=== PATIENT | female | born 1955 | race Caucasian/White ===

== ENCOUNTER → 2017-11-06 13:18 | Outpatient (POV) | payer BC, SELFPAY | PROVIDERS: PCP Family Medicine; Visit Provider Internal Medicine | DX: Z00.00 Encounter for general adult medical examination without abnormal findings (principal) ==

== ENCOUNTER → 2018-03-14 13:45 | Outpatient (CLI) | payer BC, SELFPAY ==
--- NOTE | 2018-03-14 | NVE_ITS ---
Venous Exam Indications: 782.3 Edema. IMPRESSIONS No evidence of deep or superficial vein thrombosis involving the right lower extremity Right lower extremity venous duplex evaluation. Doppler flow study including spectral analysis, color and mckeon scale imaging. Location: Vascular laboratory. Patient status: Outpatient. Tables: Venous flow and imaging: + +-------+ + Location Overall Flow properties + +-------+ + Right common femoral Patent Normal phasicity; spontaneous; normal augmentation; compressible + +-------+ + Right saphenofemoral junction Patent Compressible + +-------+ + Right profunda femoral Patent Compressible + +-------+ + Right femoral Patent Normal phasicity; spontaneous; normal augmentation; compressible + +-------+ + Right greater saphenous Patent Normal phasicity; spontaneous; normal augmentation; compressible + +-------+ + Right popliteal Patent Normal phasicity; spontaneous; normal augmentation; compressible + +-------+ + Right posterior tibial Patent Compressible + +-------+ + Right peroneal Patent Compressible + +-------+ + Right gastrocnemius Patent Compressible + +-------+ + Right soleal Patent Compressible + +-------+ + (Report amended ) Electronically signed by: Sonny Fuentes [id number]
== END ==
PROVIDERS: PCP Family Medicine; Visit Provider Family Medicine
DX: R60.0 Localized edema (principal)
CPT/HCPCS: 93971

== ENCOUNTER → 2018-04-22 12:37 | Outpatient (CLI) | payer BC, SELFPAY ==
--- NOTE | 2018-04-22 12:40 | CT_ITS ---
CT chest wo con HISTORY: Follow-up multiple pulmonary nodules, tobacco use, smoker ITS.REASON: MULTIPLE NODULES ORDERING PHYSICIAN: Linwood Negron MD PATIENT AGE: 63 years COMPARISON: 07/02/2017 Technique: Axial images obtained with sagittal and coronal reformats. All CT scans at the facility use one or more dose reduction, viz: automated exposure control, ma/kV adjustment per patient size (including targeted exams where dose is matched to indication, i.e. head), or iterative reconstruction technique. FINDINGS: No mediastinal or hilar mass or adenopathy. Coronary artery calcifications and/or stents noted. There is a moderate sized hiatal hernia. Paraseptal and centrilobular emphysematous changes. Mild bronchial thickening. Lobular soft tissue density in the left lung base posteriorly once again noted with some peripheral calcification. This is well-circumscribed and measures 17 x 13 mm not significant changed. No new nodules evident. Subpleural opacity is present in the left lung base posteriorly unchanged. The calcified nodule left lung base posteriorly unchanged. Previously described 5 mm nodule in the right lung base is no longer apparent. There was some patchy infiltrate in this area and this may been due to inflammatory change. Upper abdominal images show that the liver.. No acute bony anomalies. IMPRESSION: 1. Centrilobular and paraseptal emphysematous change with COPD and old granulomatous disease. 2. No change 17 mm left lower lobe partially calcified nodule. 3. Previously noted new nodule in the right lower lobe is no longer apparent. No new nodules evident
== END ==
PROVIDERS: PCP Family Medicine; Visit Provider Internal Medicine
DX: R91.8 Other nonspecific abnormal finding of lung field (principal)
CPT/HCPCS: 71250

== ENCOUNTER → 2018-05-07 13:28 | Outpatient (POV) | payer BC, SELFPAY | PROVIDERS: PCP Family Medicine; Visit Provider Internal Medicine | DX: Z00.00 Encounter for general adult medical examination without abnormal findings (principal) ==

== ENCOUNTER 2018-06-19 15:00 | Outpatient (RCR) | payer BC, SELFPAY ==
--- NOTE | 2018-04-17 14:23 | HMH.PTOPWND ---
Rehab Outpt Wound Evaluation Rehab OP Wound Evaluation Start: 04/17/18 14:11 Freq: Status: Active Protocol: Document 04/17/18 14:14 SIMONE (Rec: 04/17/18 14:23 PHODERICK [id number]) Electronically Signed By Edin Booth, PT 04/17/18 14:14 Subjective/History History History Pt is 63 yowf who presents with right LE increased edema x ~ 6-8 mos with insidious onset of symptoms. She does report that she had right TOM ~ 2 yrs ago with difficulty healing her incision, but has had no problems prior to this point. She reports no c/o pain or discomfort and her edema decreases with elevation. She has PMH of HTN. Lymphedema Eval Classification of Lymphedema Secondary Lymphedema Yes Stemmer's sign Stemmer's Sign no Stage of Lymphedema Lymphedema stages Stage I (Pitting edema, reduces w/ elevation, no fibrosis) Skin Changes Dry Skin Yes Redness Yes Pain Scale Pain Scale (0-10) 0 Affected Extremities Areas Affected by Lymphedema/Edema Right Lower Extremity Manual Lymphatic Drainage Treatment Area MLD Treatment Area Right Lower Extremity Wound Problems/Impairments Impairments Problems/Impairmments Increased Edema Lymphedema Present Impaired Self Care/Self Management Prognosis Rehab Potential Good Clinical Impression Consistent with Diagnosis Yes Short Term Goals Number of Weeks 4 Patient to Understand Lymphedema Yes Treatment and Exercises Decrease Girth Measurments by (cm) Yes: by 10 cm Wood Tile Installation Helper Goals Number of Weeks 8 Patient to be Ind w/ HEP Yes Patient to Adhere Lymphedema Precautions Yes Decrease Girth Measurments by (cm) Yes: by 20 cm Outpatient Therapy Plan of Care Treatment Plan May Include Therapeutic Exercise Including Home Yes Exercise Program Manual Therapy Techniques Yes Neuromuscular Re-education Yes Orthotics/Bracing/Splinting Yes Manual Lymphatic Drainage Yes Eval/Re-Eval Yes Frequency Times per week 2 Duration Number of Weeks 8 Addendums This patient is a candidate for social Yes or vocational rehab? Patient/Guardian verbally acknowledges Yes understanding of treatment program and consent
== END 2018-06-19 15:01 | disposition home or self-care (01) ==
LOC: PT 15:00
PROVIDERS: PCP Family Medicine; Visit Provider Family Medicine
DX: R60.0 Localized edema (principal)
CPT/HCPCS: 97140; 97162; 97760

== ENCOUNTER → 2018-07-01 12:09 | Outpatient (CLI) | payer BC, SELFPAY | PROVIDERS: PCP Family Medicine; Visit Provider Family Medicine | DX: Z01.818 Encounter for other preprocedural examination (principal) | CPT/HCPCS: 93005 ==

== ENCOUNTER → 2018-11-19 09:43 | Outpatient (CLI) | payer BC, SELFPAY | PROVIDERS: PCP Family Medicine; Visit Provider Internal Medicine | DX: J44.9 Chronic obstructive pulmonary disease, unspecified (principal) | CPT/HCPCS: 94060; 94726; 94729 ==

== ENCOUNTER → 2018-11-26 13:23 | Outpatient (POV) | payer BC, SELFPAY | PROVIDERS: Visit Provider Internal Medicine | DX: Z00.00 Encounter for general adult medical examination without abnormal findings (principal) ==

== ENCOUNTER → 2019-04-22 13:25 | Outpatient (CLI) | payer BC, SELFPAY ==
--- NOTE | 2019-04-22 13:28 | CT_ITS ---
PROCEDURE: CT LUNG SCREENING CLINICAL INDICATION: H/O NICOTINE DEPENDENCE COMPARISON: CHESTWO CT chest wo con from 04/22/2018 TECHNIQUE: The exam was performed on a GE Light Speed [address] scanner using 2.90 mGy CTDI. A low dose helical CT CHEST was performed on a multi-detector scanner. All CT scans at the facility use one or more dose reduction, viz: automated exposure control, ma/kV adjustment per patient size (including targeted exams where dose is matched to indication, i.e. head), or iterative reconstruction technique. The LDCT was performed in a facility that meets the criteria for the screening program. Data regarding this exam was submitted to ACR which is an approved registry. The order for this exam indicates that it came as a result of a lung cancer screening counseling shard decision-making visit that included all the elements required of such a visit including smoking cessation. The radiologist interpreting this exam meets the CMS criteria for the LDCT lung cancer screening program. The exam is reported using the Lung-RADS classification scale and reported to the ACR registry. NOTE: This study was performed for the specific purposes of lung cancer screening and is not an alternative to diagnostic chest CT. RADIATION DOSE: CTDI vol(CT dose Index-volume) = 2.90mG DLP (Dose Length Product) = 103.16 mGcm FINDINGS: Centrilobular emphysema. Calcified granuloma left lower lobe. There is a partially calcified 1.8 by 1.5 cm nodule in the left lower lobe posteriorly which is not significantly changed. In addition there is a calcified granuloma in the left lower lobe. A subpleural nodules also present in the left lower lobe posteriorly unchanged at 5 mm. No new nodules are apparent. There is a moderate-sized hiatal hernia OTHER FINDINGS: Coronary artery calcifications IMPRESSION: Lung rads category 2 benign findings Centrilobular emphysema, coronary artery calcifications, a moderate-sized hiatal hernia Recommendations: Follow-up LD CT in 1 year Dictated by: Sonny Fuentes MD 04/28/2019 05:32 Signed by: <Electronically signed by Sonny Fuentes MD in [place]> 04/28/2019 05:32
== END ==
PROVIDERS: PCP Family Medicine; Visit Provider Internal Medicine
DX: Z87.891 Personal history of nicotine dependence (principal); Z12.2 Encounter for screening for malignant neoplasm of respiratory organs

== ENCOUNTER → 2019-05-06 10:46 | Outpatient (POV) | payer BC, SELFPAY | PROVIDERS: Visit Provider Internal Medicine | DX: Z00.00 Encounter for general adult medical examination without abnormal findings (principal) ==

== ENCOUNTER → 2021-02-24 15:19 | Outpatient (CLI) | payer BC, SELFPAY ==
--- NOTE | 2021-02-24 15:20 | CT_ITS ---
PROCEDURE: CT LUNG SCREENING CLINICAL INDICATION: HX OF NICOTINE DEPENDENCE COMPARISON: CT CT LUNG SCREENING from 04/22/2019 TECHNIQUE: The exam was performed on a GE Light Speed [address] scanner using 2.90 mGy CTDI. A low dose helical CT CHEST was performed on a multi-detector scanner. All CT scans at the facility use one or more dose reduction, viz: automated exposure control, ma/kV adjustment per patient size (including targeted exams where dose is matched to indication, i.e. head), or iterative reconstruction technique. The LDCT was performed in a facility that meets the criteria for the screening program. Data regarding this exam was submitted to ACR which is an approved registry. The order for this exam indicates that it came as a result of a lung cancer screening counseling shard decision-making visit that included all the elements required of such a visit including smoking cessation. The radiologist interpreting this exam meets the CMS criteria for the LDCT lung cancer screening program. The exam is reported using the Lung-RADS classification scale and reported to the ACR registry. NOTE: This study was performed for the specific purposes of lung cancer screening and is not an alternative to diagnostic chest CT. RADIATION DOSE: CTDI vol(CT dose Index-volume) = 2.90mG DLP (Dose Length Product) = 98.47 mGcm FINDINGS: COPD with centrilobular emphysema and scattered areas of scarring with evidence of old granulomatous disease. There is a 19 mm nodule within the left lower lobe posteriorly with coarse calcifications and some fat density consistent with a hamartoma not significantly changed. Previously noted 5 mm subpleural opacity left lower lobe posterior medially is unchanged. No new nodules identified. OTHER FINDINGS: Moderate to large-sized hiatal hernia. Coronary artery calcifications. Mildly prominent left adrenal gland maintaining an adrenal form shape not significantly changed. IMPRESSION: Lung-RADS Category 2 Benign Appearance or Behavior Follow-up: Continue annual screening with LDCT in 12 months Dictated by: Sonny Fuentes MD 03/07/2021 09:40 Sonny Fuentes MD in [place] 03/07/2021 09:40
== END ==
PROVIDERS: PCP Physician Assistant; Visit Provider Physician Assistant
DX: Z87.891 Personal history of nicotine dependence (principal); Z12.2 Encounter for screening for malignant neoplasm of respiratory organs
CPT/HCPCS: 71271

== ENCOUNTER → 2021-04-07 06:29 | Outpatient (CLI) | payer BC, SELFPAY ==
--- NOTE | 2021-04-07 | CA_ITS ---
APPROVED REPORT Exam: Pharmacologic Technologist: Neris Rubin, Ht: 5 ft 6 in Wt: 193 lbs BSA: 1.97 m2 HR: 77 bpm BP: 129/84 mmHg Medical History Medications: Potassium Chloride,,,,, Pravastatin,,,,, Allopurinol,,,,, Carvedilol,,,,, QuinAPRIL,,,,, SpirOnolactone,,,,, AmOLODIPine,,,,, Stress Test Details Test: LEXISCAN HR Resting HR: 80 bpm Max Heart Rate (APMHR): 156.067815 bpm Max HR Achieved: 108 bpm Target HR (85% APMHR): 132.033673 bpm % of APMHR: 69.23 Recovery HR: 80 bpm BP Resting BP: 129/84 mmHg Max BP: 147/91 mmHg Recovery BP: 122.0/78.0 mmHg ECG Resting ECG: NSR, RBBB, Left axis deviation Clinical Exercise duration: 04:00 min Highest Stage Achieved: Exercise capacity: 1.0 METs Stress ECG Conclusion Symptoms: SOA, mild chest pressure. Malaise Arrhythmias/Ectopy: None ST-T Changes: No significant changes. Conclusion: Unremarkable Lexiscan stress. Myoview images reported separately. Electronically signed by : Fermin Sal MD 04/07/2021 14:48:52
--- NOTE | 2021-04-07 06:38 | NM_ITS ---
APPROVED REPORT Exam: Nuclear Stress Test Indication: palpitations..calcifications seen on ct scan Patient Location: Outpatient Stress Tech: Neris CORNELIUS Tech:ROMARIO Archibald RT(R)(N) Ht: 5 ft 6 in Wt: 193 lbs Bra Size: 44dd HR: 77 bpm BP: 129/84 mmHg BSA: 1.97 m2 BMI: 31.1 History: palpitations..calcifications seen on ct scan Procedure: Patient received a 0.4 mg of intravenous Lexiscan, resting heart rate 77 bpm, resting blood pressure 129/84 mmHg, with Lexiscan maximum heart rate achived was 96 bpm which is 85 % of the maximum predicted heart rate and blood pressure was 147/91 mmHg. pt was unable to lay on her belly for prone imaging Electrocardiogram Resting electrocardiogram shows sinus rhythm interventricular conduction delay, right bundle branch block, with Lexiscan there is less than 1.[address] segment depression noted from the baseline EKG. The EKG portion of the Lexiscan is nondiagnostic. Cardiac Stress and Resting SPECT Images: Cardiac Stress and Resting SPECT images were obtained using technetium 99m Myoview 32.0 mCi stress and 10.34 mCi at rest. Gated SPECT for analysis of segmental wall motion and calculation of the ejection fraction also done. Cardiac stress and resting SPECT images of fixed defect involving the anteroseptal wall with normal contractility gated SPECT is likely secondary to soft tissue attenuation, no reversible ischemia seen, computer derived ejection fraction is 49% with no regional wall motion abnormality, right ventricle is normal size and contractility. Conclusion: 1. The EKG portion of the Lexiscan is nondiagnostic. 2. No scintigraphic evidence of reversible ischemia seen, computer derived ejection fraction is 49% with no regional wall motion abnormality, right ventricle is normal size and contractility. 3. Likely normal Lexiscan Myoview study. Electronically signed by : Fermin Sal MD 04/07/2021 14:52:03
== END ==
PROVIDERS: PCP Physician Assistant; Visit Provider Physician Assistant
DX: I25.10 Atherosclerotic heart disease of native coronary artery without angina pectoris (principal); I25.84 Coronary atherosclerosis due to calcified coronary lesion
CPT/HCPCS: 78452; 93017; A9502; J2785

== ENCOUNTER → 2022-01-23 12:28 | Outpatient (CLI) | payer BC, SELFPAY ==
[2022-01-23 13:39] LABS: Cholesterol 177 mg/dl (140-200); Triglycerides 36 mg/dl (30-150); Uric Acid 1.6 mg/dl (2.5-6.2); VLDL Cholesterol 7 mg/dL (0-40)
[2022-01-23 13:39] LABS: Alanine Aminotransferase 68 U/L (12-78); Albumin Level 4.3 g/dl (3.5-5.0); Albumin/Globulin Ratio 1.4 (1.1-1.8); Alkaline Phosphatase 109 U/L (38-126); Anion Gap 13.6 mEq/L (5-15); Aspartate Amino Transferase 83 U/L (14-36); Bilirubin,Total 1.2 mg/dl (0.2-1.3); Blood Urea Nitrogen 5 mg/dl (7-17); Calcium 9.3 mg/dl (8.4-10.2); Carbon Dioxide 24 mmol/L (22.0-30.0); Chloride 88 mmol/L (98-107); Estimated Glomerular Filt Rate 124 ml/min (>60); GFR (African American) 150 ML/MIN (>60); Globulin 3.1 g/dL (1.3-3.2); Glucose 99 mg/dl (74-100); Potassium 4.6 mmoL/L (3.5-5.1); Sodium 121 mmol/L (136-145); Total Protein,Serum 7.4 g/dl (6.3-8.2)
[2022-01-23 14:11] LABS: Chol/HDL Ratio 1.3 (1-3.5); Direct LDL Cholesterol < 30.00 mg/dL (100-129); HDL Cholesterol 138 mg/dl (40-60)
== END ==
PROVIDERS: PCP Physician Assistant; Visit Provider Family Medicine
DX: E78.2 Mixed hyperlipidemia (principal); E79.0 Hyperuricemia without signs of inflammatory arthritis and tophaceous disease; E87.1 Hypo-osmolality and hyponatremia; E55.9 Vitamin D deficiency, unspecified
CPT/HCPCS: 36415; 80053; 80061; 82306; 84550

== ENCOUNTER → 2022-02-23 13:57 | Outpatient (CLI) | payer OTHER, SELFPAY ==
[2022-02-23 15:17] LABS: Anion Gap 12.9 mEq/L (5-15); Blood Urea Nitrogen 4 mg/dl (7-17); Calcium 9.2 mg/dl (8.4-10.2); Carbon Dioxide 26 mmol/L (22.0-30.0); Chloride 90 mmol/L (98-107); Estimated Glomerular Filt Rate 124 ml/min (>60); GFR (African American) 150 ML/MIN (>60); Glucose 104 mg/dl (74-100); Potassium 4.9 mmoL/L (3.5-5.1); Sodium 124 mmol/L (136-145)
== END ==
PROVIDERS: PCP Physician Assistant; Visit Provider Family Medicine
DX: R60.0 Localized edema (principal)
CPT/HCPCS: 36415; 80048

== ENCOUNTER → 2022-08-04 14:19 | Outpatient (CLI) | payer MEDICARE, SELFPAY ==
--- NOTE | 2022-08-04 | CA_ITS ---
FINAL REPORT TECHNIQUE: Multiple transverse and longitudinal images were performed of right the femoral-popliteal deep venous system with augmentation and compression maneuvers. CLINICAL HISTORY: rt led swelling [id number], hx Lymph edemea of rt leg, cellulitis. FINDINGS: Right lower extremity duplex ultrasound demonstrates normal flow in the deep venous system. There is no abnormal echogenicity to suggest thrombus. There is normal compression and augmentation. IMPRESSION: No evidence of right DVT. Reviewed, Interpreted and Dictated by Randy Armando MD Transcribed by Jeb Collins Authenticated and . [facility]
== END ==
PROVIDERS: PCP Physician Assistant; Visit Provider Physician Assistant
DX: R60.0 Localized edema (principal); M79.604 Pain in right leg
CPT/HCPCS: 93971

== ENCOUNTER 2022-10-12 15:00 | Outpatient (RCR) | payer MEDICARE, SELFPAY ==
--- NOTE | 2022-08-16 11:33 | HMH.PTOPWND ---
Rehab Outpt Wound Evaluation Rehab OP Wound Evaluation Start: 08/16/22 11:12 Freq: Status: Active Protocol: Document 08/16/22 11:26 SIMONE (Rec: 08/16/22 11:33 PHORNYDIA [id number]) E-signed By Edin Booth, PT Subjective/History History History This is the initial PT eval for Bárbara Lemus 67 yowf who presents with c/o R LE edema x ~ 1 mo with insidious onset of symptoms. She reports no c/ o pain or numbness/tingling in the R LE at this time. She does reports significantly dry skin. She also states, I picked at some of the dry skin and made a little place on my leg. Small open sore on medial R calf noted. She had US performed and DVT was ruled out. She reports PMH of: HTN, R TOM via ant approach, latent TB, and she is a smoker . Subjective Subjective Moderate hyperkeratosis noted to R lower leg. Medial R calf wound L= 2.8 cm, W= 0.8 cm, D= 0.1 cm. 1+ pitting edema overlying fibrotic edema throughout the R LE. 0/4 TTP noted at this time. Lymphedema Eval Classification of Lymphedema Secondary Lymphedema Yes Stemmer's sign Stemmer's Sign yes Stage of Lymphedema Lymphedema stages Stage II (Pitting edema, increased fibrosis w/ decreased pitting) Skin Changes Dry Skin Yes Hyperkeratosis Yes Redness Yes Wounds Yes Brittle Uneven Nails Yes Discoloration of Skin Yes Other Changes Yes Pain Scale Pain Scale (0-10) 0 Affected Extremities Areas Affected by Lymphedema/Edema Right Lower Extremity Manual Lymphatic Drainage Treatment Area MLD Treatment Area Right Lower Extremity,Left Lower Extremity Wound Problems/Impairments Impairments Problems/Impairmments Impaired Endurance,Impaired Transfers,Impaired Gait Pattern,Impaired Walking, Impaired Standing,Impaired Household Care,Impaired Stair
--- NOTE | 2022-09-14 16:12 | HMH.RHREAS ---
Rehab Reassessment Rehab OP Re-assessment Start: 09/14/22 16:00 Freq: Status: Active Protocol: Document 09/14/22 16:05 [email or web address] (Rec: 09/14/22 16:12 PHODERICK [id number]) E-signed By Edin Booth, PT Rehab Re-assessment Subjective Subjective Pt reports feeling much better overall this date. I can put my socks and shoes on by myself. Objective Objective Notes R LE edema: Palpation shows decreased fibrotic edema throughout the R thigh and no pitting edema in the lower leg . Wound: R lower leg wound presents fully epithelialized at this time. Assessment Progress Assessment Progressing as Expected Assessment Notes Pt has shown much improved edema overall in the R LE. Mild fibrotic edema remains in the posterior medial R thigh, but this is a significant improvement from initial eval. She has much improved ADLs and functional mobility at this point. Patient goals met ST,2,3 LT Goals Not Met LT,3,4,5 Revised Goals none Plan Plan Continue per initial POC. Frequency of Therapy 2 x/wk Duration of therapy 4 wks Time and Billing Re-Eval Time 16 Re-Eval Billing Units 1 PHYSICIAN CERTIFICATION: I certify the specified therapy services for Bárbara Lemus are required, authorized, and reviewed every 30 days.
== END 2022-10-12 15:05 | disposition home or self-care (01) ==
LOC: PT 15:00
PROVIDERS: PCP Physician Assistant; Visit Provider Physician Assistant
DX: R60.0 Localized edema (principal)
CPT/HCPCS: 97140; 97162; 97164

== ENCOUNTER 2023-09-17 11:58 | Outpatient (CLI) | payer MEDICARE, SELFPAY ==
[2023-09-17 12:10] LABS: Microscopic, Urine URINE MICROSCOPIC (MICROSCOPIC)
[2023-09-17 12:40] LABS: Hematocrit 42.7 % (37.0-47.0); Hemoglobin 14.4 g/dL (12.2-16.2); Mean Corpuscular HGB Conc 33.8 g/dL (31.8-35.4); Mean Corpuscular Hemoglobin 33.9 pg (27.0-31.2); Mean Corpuscular Volume 100.2 fl (81-99); Platelet Count 280 K/mm3 (142-424); Red Blood Count 4.26 M/mm3 (4.20-5.40); Red Cell Distribution Width 14.5 % (11.5-17.5); White Blood Count 6.4 K/mm3 (4.8-10.8)
[2023-09-17 12:56] LABS: Chloride 92 mmol/L (98-107); Potassium 4.4 mmoL/L (3.5-5.1); Sodium 129 mmol/L (136-145)
[2023-09-17 12:57] LABS: Chloride 93 mmol/L (98-107); Potassium 4.5 mmoL/L (3.5-5.1); Sodium 129 mmol/L (136-145)
[2023-09-17 12:58] LABS: Albumin Level 4.3 g/dl (3.5-5.0)
[2023-09-17 12:59] LABS: Alanine Aminotransferase 50 U/L (12-78); Albumin Level 4.3 g/dl (3.5-5.0); Albumin/Globulin Ratio 1.2 (1.1-1.8); Alkaline Phosphatase 118 U/L (38-126); Anion Gap 13.4 mEq/L (5-15); Aspartate Amino Transferase 85 U/L (14-36); Bilirubin,Total 1.3 mg/dl (0.2-1.3); Blood Urea Nitrogen 9 mg/dl (7-17); Carbon Dioxide 28 mmol/L (22.0-30.0); Cholesterol 169 mg/dl (140-200); Estimated Glomerular Filt Rate 100 ml/min (>60); GFR (African American) 121 ML/MIN (>60); Globulin 3.6 g/dL (1.3-3.2); Total Protein,Serum 7.9 g/dl (6.3-8.2); Triglycerides 56 mg/dl (30-150); VLDL Cholesterol 11 mg/dL (0-40)
[2023-09-17 13:00] LABS: Anion Gap 13.5 mEq/L (5-15); Blood Urea Nitrogen 9 mg/dl (7-17); Calcium 9.3 mg/dl (8.4-10.2); Carbon Dioxide 27 mmol/L (22.0-30.0); Estimated Glomerular Filt Rate 100 ml/min (>60); GFR (African American) 121 ML/MIN (>60); Glucose 100 mg/dl (74-100); Phosphorous 4.1 mg/dl (2.5-4.5)
[2023-09-17 13:00] LABS: Calcium 9.4 mg/dl (8.4-10.2); Glucose 101 mg/dl (74-100)
[2023-09-17 13:12] LABS: Intact Parathyroid Hormone 50.1 pg/mL (7.5-53.5)
[2023-09-17 13:18] LABS: 25-OH Vitamin D, Total 44.6 ng/mL (30-100); Chol/HDL Ratio 1.5 (1-3.5); HDL Cholesterol 112 mg/dl (40-60)
[2023-09-17 13:22] LABS: Direct LDL Cholesterol 39.02 mg/dL (100-129)
[2023-09-17 13:31] LABS: Thyroid Stimulating Hormone 1.82 uIU/mL (0.465-4.68)
[2023-09-17 13:40] LABS: Appearance,Urine CLEAR (Clear); Blood, Urine Negative (Negative); Color,Urine YELLOW (Yellow); Glucose,Urine (UA) Negative (Negative); Ketones,Urine Negative (Negative); Leukocyte Esterase,Urine TRACE (Negative); Nitrate,Urine Negative (Negative); PH,Urine 7.5 (5.0-8.5); Protein,Urine TRACE (Negative); Specific Gravity, Urine <= 1.005 (1.005-1.030)
[2023-09-17 13:41] LABS: Bilirubin,Urine 1+ (Negative)
[2023-09-17 13:50] LABS: Vitamin B12 348 pg/mL (239-931)
[2023-09-17 14:54] LABS: Bacteria,Urine Trace /lpf; WBC,Urine Occasional #/hpf (0-3)
[2023-09-17 15:23] LABS: Uric Acid 2.1 mg/dl (2.5-6.2)
[2023-09-18 08:14] LABS: Sodium, Urine 24 mmol/L (Not Estab.)
[2023-09-19 03:37] LABS: Osmolality, Urine 473 mOsmol/kg (.)
== END 2023-09-17 23:59 ==
LOC: LAB 12:00
PROVIDERS: Internal Medicine Nephrology; PCP Physician Assistant; Visit Provider Physician Assistant
DX: E87.1 Hypo-osmolality and hyponatremia (principal); E78.2 Mixed hyperlipidemia; E53.8 Deficiency of other specified B group vitamins; E55.9 Vitamin D deficiency, unspecified; E79.0 Hyperuricemia without signs of inflammatory arthritis and tophaceous disease; I10 Essential (primary) hypertension; I89.0 Lymphedema, not elsewhere classified
CPT/HCPCS: 36415; 80053; 80061; 80069; 81001; 82306; 82607; 83930; 83935; 83970; 84155; 84300; 84443; 84550; 85014; 85018; 85048; 85049

== ENCOUNTER 2023-09-24 12:12 | Outpatient (POV) | payer MEDICARE, SELFPAY | END 2023-09-24 23:59 | disposition home or self-care (01) | LOC: SC 12:12 | PROVIDERS: Visit Provider Nurse Practitioner | DX: Z00.00 Encounter for general adult medical examination without abnormal findings (principal) ==

== ENCOUNTER 2024-02-04 07:46 | Outpatient (CLI) | payer MEDICARE, SELFPAY ==
--- NOTE | 2024-02-04 07:53 | US_ITS ---
FINAL REPORT CLINICAL HISTORY: CIRRHOSIS COMPARISON: None FINDINGS: Sonographic images of the abdomen were obtained. There is increased echogenicity in the liver consistent with fatty infiltration. The gallbladder has an unremarkable appearance without evidence of gallstones. There is no evidence of biliary ductal dilatation. The common hepatic duct measures 5 mm, which is within normal limits. The the pancreas is obscured by overlying bowel gas. The spleen size is normal. The right kidney measures 11.9 in length. The left kidney measures 11.2 in length. There is a mid right renal column of pertain noted. There is a hypoechoic mass in the upper pole of the left kidney that may represent a cyst. Correlation with renal mass protocol CT would be helpful if clinically indicated. There is no evidence of hydronephrosis. The aorta has an unremarkable appearance. Limited images of the inferior vena cava are unremarkable. IMPRESSION: Fatty infiltration of the liver without evidence of focal lesion or biliary ductal dilatation. Hypoechoic focus in the upper pole of the left kidney, that may represent a cyst although it cannot be accurately characterized based on this examination alone. If clinically indicated, renal mass protocol CT could be performed for further evaluation. Reviewed, Interpreted and Dictated by Rodney Garcia III, MD Transcribed by Thu Rubi Authenticated and [facility]
[2024-02-04 09:41] LABS: Alanine Aminotransferase 45 U/L (12-78); Albumin Level 3.9 g/dl (3.5-5.0); Albumin/Globulin Ratio 1.1 (1.1-1.8); Alkaline Phosphatase 103 U/L (38-126); Anion Gap 18.1 mEq/L (5-15); Aspartate Amino Transferase 79 U/L (14-36); Blood Urea Nitrogen 7 mg/dl (7-17); Calcium 9.3 mg/dl (8.4-10.2); Carbon Dioxide 23 mmol/L (22.0-30.0); Chloride 93 mmol/L (98-107); Estimated Glomerular Filt Rate 100 ml/min (>60); GFR (African American) 121 ML/MIN (>60); Globulin 3.4 g/dL (1.3-3.2); Glucose 86 mg/dl (74-100); Potassium 4.1 mmoL/L (3.5-5.1); Sodium 130 mmol/L (136-145); Total Protein,Serum 7.3 g/dl (6.3-8.2)
[2024-02-04 10:10] LABS: Thyroid Stimulating Hormone 3.13 uIU/mL (0.465-4.68)
== END 2024-02-04 23:59 | disposition home or self-care (01) ==
LOC: RAD 07:47
PROVIDERS: PCP Physician Assistant; Visit Provider Nurse Practitioner
DX: E87.1 Hypo-osmolality and hyponatremia (principal); F10.10 Alcohol abuse, uncomplicated; R74.01 Elevation of levels of liver transaminase levels; R82.2 Biliuria
CPT/HCPCS: 36415; 76700; 80053; 82533; 84443

== ENCOUNTER 2024-02-14 11:57 | Outpatient (CLI) | payer MEDICARE, SELFPAY | END 2024-02-14 23:59 | disposition home or self-care (01) | LOC: LAB 11:59 | PROVIDERS: PCP Physician Assistant; Visit Provider Nurse Practitioner | DX: Z02.9 Encounter for administrative examinations, unspecified (principal) ==

== ENCOUNTER 2024-09-02 15:00 | Outpatient (RCR) | payer MEDICARE, SELFPAY ==
--- NOTE | 2024-05-15 16:38 | HMH.PTOPWND ---
Rehab Outpt Wound Evaluation Rehab OP Wound Evaluation Start: 05/15/24 16:07 Freq: Status: Active Protocol: Document 05/15/24 16:07 SIMONE (Rec: 05/15/24 16:37 SIMONE [id number]) E-signed By Edin Booth, PT Subjective/History History History This is the initial PT eval for Bárbara Lemus, 69 yowf who presents with c/o increased lymphedema throughout the R LE worse x ~ 1 yr. She reports he lymphedema began essentially right after a R TOM ~9-10 yrs and has been present since that time. 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 She also has difficulty ambulating at baseline since her TOM. She reports no pain at this time. Subjective Subjective 2+ pitting edema overlying severe fibrotic edema throughout the R LE. Moderate blanchable erythema throughout the R lower leg. She presents with anterior R carmona superficial open skin wound L= 18.0 cm, W= 9.0 cm, D= 0.1 cm with large amts drainage noted. New diagnosis of cancer in past 12 No months? Wound Problems/Impairments Impairments Problems/Impairmments Palpation Tenderness,Impaired Gait Pattern,Impaired Walking, Impaired Standing,Impaired Shower/Bathing,Impaired Household Care,Increased Edema ,Lymphedema Present,Wound Care Needs,Impaired Self Care/Self Management Prognosis Rehab Potential Good Comment Skilled therapy services are indicated to reduce overall edema burden, improve wound healing, and return pt to PLOF . Clinical Impression Consistent with Diagnosis Yes Short Term Goals Number of Weeks 4 Decrease Edema Yes: 1+ pitting edema R lower leg Decrease Lymphedema Yes: Moderate fibrotic edema Patient to Understand Lymphedema Yes Treatment and Exercises Decrease Girth Measurments by (cm) Yes: R LE total by 5 cm Commercial Loan Coordinator Goals Number of Weeks 6-8 Decrease Edema Yes: no pitting edema R LE Decrease Lymphedema Yes: Mild fibrotic edema R LE Patient to be Ind w/ HEP Yes Patient to Adhere Lymphedema Precautions Yes Decrease Girth Measurments by (cm) Yes: R LE total by 20 cm Outpatient Therapy Plan of Care Treatment Plan May Include Therapeutic Exercise Including Home Yes Exercise Program Manual Therapy Techniques Yes Neuromuscular Re-education Yes Therapeutic Activities to Return to Yes Previous Functional/Work Level ADL/Self Care Education Yes Orthotics/Bracing/Splinting Yes Manual Lymphatic Drainage Yes Eval/Re-Eval Yes Frequency Times per week 2 Duration Number of Weeks 6-8 Addendums This patient is a candidate for social No or vocational rehab? Patient/Guardian verbally acknowledges Yes understanding of treatment program and consents to further treatment? Patient/Guardian verbally acknowledges Yes understanding of diagnosis, prognosis and goals for treatment? Eval Complexity PT Charges 99671 - High Complexity PHYSICIAN CERTIFICATION: I certify the specified therapy services for Bárbara Lemus are required, authorized, and reviewed every 30 days.
--- NOTE | 2024-05-15 16:43 | HMH.PTOPWND ---
Rehab Outpt Wound Evaluation Rehab OP Wound Evaluation Start: 05/15/24 16:07 Freq: Status: Active Protocol: Document 05/15/24 16:07 SIMONE (Rec: 05/15/24 16:37 SIMONE [id number]) E-signed By Edin Booth, PT Subjective/History History History This is the initial PT eval for Bárbara Lemus, 69 yowf who presents with c/o increased lymphedema throughout the R LE worse x ~ 1 yr. She reports he lymphedema began essentially right after a R TOM ~9-10 yrs and has been present since that time. 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 She also has difficulty ambulating at baseline since her TOM. She reports no pain at this time. Subjective Subjective 2+ pitting edema overlying severe fibrotic edema throughout the R LE. Moderate blanchable erythema throughout the R lower leg. She presents with anterior R carmona superficial open skin wound L= 18.0 cm, W= 9.0 cm, D= 0.1 cm with large amts drainage noted. New diagnosis of cancer in past 12 No months? Lymphedema Eval Classification of Lymphedema Secondary Lymphedema Yes Stemmer's sign Stemmer's Sign yes Stage of Lymphedema Lymphedema stages Stage III (Non-pitting, fibrosis and sclerosis, skin changes) Skin Changes Dry Skin Yes Skin Folds Yes Hyperkeratosis Yes Redness Yes Brittle Uneven Nails Yes Discoloration of Skin Yes Other Changes Yes Affected Extremities Areas Affected by Lymphedema/Edema Right Lower Extremity Manual Lymphatic Drainage Treatment Area MLD Treatment Area Right Lower Extremity Wound Problems/Impairments Impairments Problems/Impairmments Palpation Tenderness,Impaired Gait Pattern,Impaired Walking, Impaired Standing,Impaired Shower/Bathing,Impaired Household Care,Increased Edema ,Lymphedema Present,Wound Care Needs,Impaired Self Care/Self Management Prognosis Rehab Potential Good Comment Skilled therapy services are indicated to reduce overall edema burden, improve wound healing, and return pt to PLOF . Clinical Impression Consistent with Diagnosis Yes Short Term Goals Number of Weeks 4 Decrease Edema Yes: 1+ pitting edema R lower leg Decrease Lymphedema Yes: Moderate fibrotic edema Patient to Understand Lymphedema Yes Treatment and Exercises Decrease Girth Measurments by (cm) Yes: R LE total by 5 cm Automation Developer Goals Number of Weeks 6-8 Decrease Edema Yes: no pitting edema R LE Decrease Lymphedema Yes: Mild fibrotic edema R LE Patient to be Ind w/ HEP Yes Patient to Adhere Lymphedema Precautions Yes Decrease Girth Measurments by (cm) Yes: R LE total by 20 cm Outpatient Therapy Plan of Care Treatment Plan May Include Therapeutic Exercise Including Home Yes Exercise Program Manual Therapy Techniques Yes Neuromuscular Re-education Yes Therapeutic Activities to Return to Yes Previous Functional/Work Level ADL/Self Care Education Yes Orthotics/Bracing/Splinting Yes Manual Lymphatic Drainage Yes Eval/Re-Eval Yes Frequency Times per week 2 Duration Number of Weeks 6-8 Addendums This patient is a candidate for social No or vocational rehab? Patient/Guardian verbally acknowledges Yes understanding of treatment program and consents to further treatment? Patient/Guardian verbally acknowledges Yes understanding of diagnosis, prognosis and goals for treatment? Eval Complexity PT Charges 05582 - High Complexity PHYSICIAN CERTIFICATION: I certify the specified therapy services for Bárbara Lemus are required, authorized, and reviewed every 30 days.
--- NOTE | 2024-06-12 16:08 | HMH.RHREAS ---
Rehab Reassessment Rehab OP Re-assessment Start: 05/15/24 16:07 Freq: Status: Active Protocol: Document 06/12/24 16:03 SIMONE (Rec: 06/12/24 16:08 PHORNYDIA [id number]) E-signed By Edin Booth PT Rehab Re-assessment Subjective Subjective Pt reports no c/o pain at this time in the R LE, 0/10. She reports minimal tenderness to palpation and she feels her R LE is much less heavy in general. She reports feeling happy with her progress. Objective Objective Notes Circumferential Measurement: R LE total is 342.1 cm this date. TTP: 09/06 anterior R carmona. Edema: 1+ pitting and MODERATE fibrotic edema noted to the R Lower Leg. R upper leg much softer and more pliable than on initial evaluation with palpation. Skin: Erythema remains throughout the R lower leg, but less dry flaky skin and only moderate hyperkeratosis noted at this time. Assessment Progress Assessment Progressing as Expected Assessment Notes Pt has shown improvements in overall edema, skin condition, and discomfort throughout the R LE. She continues to need skilled intervention to further reduce overall edema, improve skin condition of the R lower leg and return to her PLOF. Patient goals met ST LT/5 Plan Plan Continue per initial POC. Frequency of Therapy 2 x/wk Duration of therapy 4 wks Time and Billing Re-Eval Time 12 Re-Eval Billing Units 0 PHYSICIAN CERTIFICATION: I certify the specified therapy services for Bárbara Lemus are required, authorized, and reviewed every 30 days.
--- NOTE | 2024-07-10 17:01 | HMH.RHREAS ---
Rehab Reassessment Rehab OP Re-assessment Start: 05/15/24 16:07 Freq: Status: Active Protocol: Document 07/10/24 16:53 SIMONE (Rec: 07/10/24 17:00 SIMONE [id number]) E-signed By Edin Booth, PT Rehab Re-assessment Subjective Subjective Pt again reports no c/o pain in the R LE. She feels much better with mobility and her clothes fit her much better than they did. Objective Objective Notes Circumferential Measurement: R LE total is 313.4 cm this date which is -28.7 cm since initial eval. TTP: 09/06 anterior R carmona. Edema: 1+ pitting and MILD fibrotic edema noted to the R Lower Leg. R upper leg much softer and more pliable than on initial evaluation with palpation. Skin: MODERATE Erythema remains throughout the R lower leg, but less dry flaky skin and only moderate hyperkeratosis noted at this time. Assessment Progress Assessment Progressing as Expected Assessment Notes Pt has shown significant improvements in overall edema based on circumferential measurements, skin condition, and discomfort throughout the R LE. She continues to need skilled intervention to further reduce overall edema, improve skin condition of the R lower leg and return to her PLOF. Patient goals met ST/4 LT/5 Plan Plan Continue per initial POC. Frequency of Therapy 2 x/wk Duration of therapy 4 wks Time and Billing Re-Eval Time 11 Re-Eval Billing Units 0 Charge for PT reassessment? No PHYSICIAN CERTIFICATION: I certify the specified therapy services for Bárbara Lemus are required, authorized, and reviewed every 30 days.
--- NOTE | 2024-08-07 15:57 | HMH.RHREAS ---
Rehab Reassessment Rehab OP Re-assessment Start: 05/15/24 16:07 Freq: Status: Active Protocol: Document 08/07/24 15:51 SIMONE (Rec: 08/07/24 15:57 PHODERICK [id number]) E-signed By Edin Booth, PT Rehab Re-assessment Subjective Subjective Pt reports large increase in her R LE edema over the past several days. She states that she has been wearing her compression garments and elevating her R LE as instructed, but her edema dramatically increased anyway. Objective Objective Notes Circumferential Measurement: R LE total is 336.0 cm which is -6.1 cm since IE, but +22.6 cm since last RA. TTP: 09/06 anterior R carmona. Edema: 1+ pitting and MODERATE fibrotic edema noted to the R Lower Leg. R upper has returned to more stiff and hard with palpation as it was on initial evaluation with palpation. Skin: Erythema remains throughout the R lower leg, but less dry flaky skin and only moderate hyperkeratosis noted at this time. Assessment Progress Assessment No Progress Assessment Notes Pt has shown a significant increase in her R LE over the past week and since her last reassessment as indicated by circumferential measurements as noted. No direct cause of this sudden increase in edema is known at this time. She continues to need skilled therapy services to reduce overall edema burden and return to PLOF. Patient goals met ST LT/ Plan Plan Continue per initial POC. Frequency of Therapy 2 x/wk Duration of therapy 4 wks Time and Billing Re-Eval Time 12 Re-Eval Billing Units 1 Charge for PT reassessment? Yes PHYSICIAN CERTIFICATION: I certify the specified therapy services for Bárbara Lemus are required, authorized, and reviewed every 30 days.
== END 2024-09-02 23:59 | disposition home or self-care (01) ==
LOC: PT 15:00
PROVIDERS: Visit Provider Family Medicine
DX: I89.0 Lymphedema, not elsewhere classified (principal)
CPT/HCPCS: 97140; 97163; 97164

== ENCOUNTER 2024-10-02 14:00 | Outpatient (RCR) | payer MEDICARE, SELFPAY ==
--- NOTE | 2024-09-12 15:51 | HMH.RHREAS ---
Rehab Reassessment Rehab OP Re-assessment Start: 09/11/24 16:54 Freq: Status: Active Protocol: Document 09/11/24 16:30 [email or web address] (Rec: 09/12/24 15:51 PHORNYDIA [id number]) E-signed By Edin Booth, PT Rehab Re-assessment Subjective Subjective Pt reports she feels considerably better and has no pain in her R LE. She does continue to have difficulty with stiffness in her R LE due to increased edema. Objective Objective Notes Circumferential Measurement: R LE total is 333.6 cm which is -8.5 cm since IE. TTP: 09/06 anterior R carmona. Edema: 1+ pitting and MODERATE fibrotic edema noted to the R Lower Leg. R upper has returned to more stiff and hard with palpation as it was on initial evaluation with palpation. Skin: Erythema remains throughout the R lower leg, but less dry flaky skin and only moderate hyperkeratosis noted at this time. Assessment Progress Assessment Progressing as Expected Assessment Notes Pt has shown significant improvements in overall edema based on circumferential measurements, skin condition, and discomfort throughout the R LE. She continues to need skilled intervention to further reduce overall edema, improve skin condition of the R lower leg and return to her PLOF. Patient goals met ST/4 LT/5 Plan Plan Continue per initial POC. Frequency of Therapy 2 x/wk Duration of therapy 4 wks Time and Billing Re-Eval Time 10 Re-Eval Billing Units 0 Charge for PT reassessment? No PHYSICIAN CERTIFICATION: I certify the specified therapy services for Bárbara Lemus are required, authorized, and reviewed every 30 days.
== END 2024-10-02 23:59 | disposition home or self-care (01) ==
LOC: PT 14:00
PROVIDERS: Visit Provider Family Medicine
DX: I89.0 Lymphedema, not elsewhere classified (principal)
CPT/HCPCS: 97140

== ENCOUNTER 2024-10-09 14:36 | Outpatient (RCR) | payer MEDICARE, SELFPAY | END 2024-10-09 23:59 | disposition home or self-care (01) | LOC: PT 14:36 | PROVIDERS: Visit Provider Family Medicine | DX: I89.0 Lymphedema, not elsewhere classified (principal) | CPT/HCPCS: 97140 ==

== ENCOUNTER 2025-01-29 15:00 | Outpatient (RCR) | payer MEDICARE, SELFPAY ==
--- NOTE | 2025-01-08 16:52 | HMH.PTOPWND ---
Rehab Outpt Wound Evaluation Rehab OP Wound Evaluation Start: 01/08/25 16:40 Freq: Status: Active Protocol: Document 01/08/25 16:40 SIMONE (Rec: 01/08/25 16:52 SIMONE [id number]) E-signed By Edin Booth, PT Subjective/History History History This is the initial PT lymphedema eval for Bárbara Lemus, 69 yowf who presents with c/o chronic R LE lymphedema exacerbated x ~ 2-3 mos, but overall present for 2-3 years. She reports no c/o pain at this time, but does have significant heaviness throughout the R LE. She is well known to this clinic and was only discharged from her last treatment episode ~ 3 mos ago. She has home lymphedema pump, compression garments for day and night, and prior HEP which she performs daily. Subjective Subjective Pain currently 0/10, at worst 1/10. 0/4 TTP noted this date. Significant increased hyperkeratosis, papillomatosis , and erythema noted to the R lower leg. Severe fibrotic edema noted to the R lower leg with overlying 2+ pitting edema. Lymphedema Eval Classification of Lymphedema Secondary Lymphedema Yes Stemmer's sign Stemmer's Sign yes Stage of Lymphedema Lymphedema stages Stage III (Non-pitting, fibrosis and sclerosis, skin changes) Skin Changes Dry Skin Yes Skin Folds Yes Hyperkeratosis Yes Papillomatosis Yes Redness Yes Brittle Uneven Nails Yes Discoloration of Skin Yes [place] Yes Other Changes Yes Pain Scale Pain Scale (0-10) 1 Lower Extremity Measurements Right MTP Measurement (cm) 26.5 Heel Measurement (cm) 35.0 10 cm Proximal to Lateral Malleoli 36.0 Measurement (cm) 20 cm Proximal to Lateral Malleoli 48.8 Measurement (cm) 30 cm Proximal to Lateral Malleoli 50.7 Measurement (cm) 40 cm Proximal to Lateral Malleoli 50.6 Measurement (cm) 50 cm Proximal to Lateral Malleoli 57.5 Measurement (cm) 60 cm Proximal to Lateral Malleoli 0 Measurement (cm) Lower Extremity Measurement Total (cm) 305.1 Manual Lymphatic Drainage Treatment Area MLD Treatment Area Right Lower Extremity Wound Problems/Impairments Impairments Problems/Impairmments Impaired Endurance,Impaired Transfers,Impaired Gait Pattern,Impaired Walking, Impaired Standing,Impaired Shower/Bathing,Impaired Household Care,Increased Edema ,Lymphedema Present,Subjective C/O Pain,Impaired Self Care/ Self Management Prognosis Rehab Potential Good Comment Skilled therapy services are indicated to reduce overall edema burden in order to aid pt return to PLOF with less heaviness throughout the R LE. Clinical Impression Consistent with Diagnosis Yes Short Term Goals Number of Weeks 2 Decrease Edema Yes: 1+ pitting edema Decrease Lymphedema Yes: MODERATE fibrotic edema R LE Decrease Girth Measurments by (cm) Yes: R LE total by 5 cm Bottle Blower Goals Number of Weeks 4 Decrease Edema Yes: no pitting edema R LE Decrease Lymphedema Yes: MILD fibrotic edema R LE Decrease Subjective C/O Pain Yes: 0/10 R LE Patient to be Ind w/ Advanced HEP Yes Patient to be Ind w/ [place] Yes Compression Garments Patient to Adhere Lymphedema Precautions Yes Decrease Girth Measurments by (cm) Yes: R LE total by 20 cm Outpatient Therapy Plan of Care Treatment Plan May Include Therapeutic Exercise Including Home Yes Exercise Program Manual Therapy Techniques Yes Neuromuscular Re-education Yes Therapeutic Activities to Return to Yes Previous Functional/Work Level ADL/Self Care Education Yes Orthotics/Bracing/Splinting Yes Manual Lymphatic Drainage Yes Eval/Re-Eval Yes Frequency Times per week 2-3 Duration Number of Weeks 4 Addendums This patient is a candidate for social No or vocational rehab? Patient/Guardian verbally acknowledges Yes understanding of treatment program and consents to further treatment? Patient/Guardian verbally acknowledges Yes understanding of diagnosis, prognosis and goals for treatment? Eval Complexity PT Charges 42171 - High Complexity PHYSICIAN CERTIFICATION: I certify the specified therapy services for Bárbara Lemus are required, authorized, and reviewed every 30 days.
== END 2025-01-29 23:59 | disposition home or self-care (01) ==
LOC: PT 15:00
PROVIDERS: PCP Physician Assistant; Visit Provider Family Medicine
DX: I89.0 Lymphedema, not elsewhere classified (principal)
CPT/HCPCS: 97140; 97163

== ENCOUNTER 2025-02-26 16:00 | Outpatient (RCR) | payer MEDICARE, SELFPAY ==
--- NOTE | 2025-02-20 14:59 | HMH.PTOPWND ---
Rehab Outpt Wound Evaluation Rehab OP Wound Evaluation Start: 02/20/25 14:38 Freq: Status: Active Protocol: Document 02/20/25 14:39 [email or web address] (Rec: 02/20/25 14:58 JASMYN [id number]) E-signed By Hamilton Odonnell, PT Subjective/History History History This is the initial PT eval for Bárbara Lemus, 69 yowf who presents with c/o increased lymphedema throughout the L LE worsened for approximately 3-4 weeks. She has been receiving treatment for her R LE for since August of 2024. She reports he lymphedema began essentially right after a R TOM ~9-10 yrs and has been present since that time. 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 She also has difficulty ambulating at baseline since her TOM. She reports no pain at this time. Subjective Subjective 2+ pitting edema overlying severe fibrotic edema throughout the R LE. Moderate blanchable erythema throughout the R lower leg. No open wounds or drainage visible. New diagnosis of No cancer in past 12 months? Lymphedema Eval Classification of Lymphedema Secondary Lymphedema Yes Stemmer's sign Stemmer's Sign yes Stage of Lymphedema Lymphedema stages Stage II (Pitting edema, increased fibrosis w/ decreased pitting) Skin Changes Dry Skin Yes Hyperkeratosis Yes Brittle Uneven Nails Yes Discoloration of Yes Skin Other Changes Yes Pain Scale Pain Scale (0-10) 0 Lower Extremity Measurements Left MTP Measurement (cm) 29.5 Heel Measurement (cm 37.6 ) 10 cm Proximal to 37.2 Lateral Malleoli Measurement (cm) 20 cm Proximal to 48.4 Lateral Malleoli Measurement (cm) 30 cm Proximal to 48.2 Lateral Malleoli Measurement (cm) 40 cm Proximal to 41.5 Lateral Malleoli Measurement (cm) 50 cm Proximal to 51.6 Lateral Malleoli Measurement (cm) 60 cm Proximal to 0 Lateral Malleoli Measurement (cm) Lower Extremity 294.0 Measurement Total ( cm) Manual Lymphatic Drainage Treatment Area MLD Treatment Area Lumbar/Gluteal Region,Left Lower Extremity Wound Problems/Impairments Impairments Problems/ Palpation Tenderness,Impaired Gait Pattern,Impaired Impairmments Walking,Impaired Standing,Impaired Household Care, Increased Edema,Wound Care Needs,Impaired Self Care/ Self Management Prognosis Rehab Potential Good Comment Skilled therapy services are indicated to reduce overall edema burden, improve wound healing, and return pt to PLOF. Clinical Impression Consistent with Yes Diagnosis Consistent with LLE Secondary Lymphedema Short Term Goals Number of Weeks 4 Decrease Edema Yes: 1+ Pitting Edema Decrease Lymphedema Yes: Moderate Fibrotic Edema Patient to Yes Understand Lymphedema Treatment and Exercises Decrease Girth Yes: L LE by 5 cm total Measurments by (cm) [facility] Goals Number of Weeks 8 Decrease Edema Yes: No pitting edema Decrease Lymphedema Yes: Mild Fibrotic Edema Patient to be Ind w/ Yes HEP Patient to Adhere Yes Lymphedema Precautions Decrease Girth Yes: L LE by 20 cm total Measurments by (cm) Outpatient Therapy Plan of Care Treatment Plan May Include Therapeutic Exercise Yes Including Home Exercise Program Manual Therapy Yes Techniques Neuromuscular Re- Yes education Therapeutic Yes Activities to Return to Previous Functional/Work Level Gait Training Yes ADL/Self Care Yes Education Thermal Modalities Yes Electrical Yes Stimulation Manual Lymphatic Yes Drainage Eval/Re-Eval Yes Frequency Times per week 2 Duration Number of Weeks 8 Addendums This patient is a No candidate for social or vocational rehab ? Patient/Guardian Yes verbally acknowledges understanding of treatment program and consents to further treatment? Patient/Guardian Yes verbally acknowledges understanding of diagnosis, prognosis and goals for treatment? Eval Complexity PT Charges 77527 - High Complexity PHYSICIAN CERTIFICATION: I certify the specified therapy services for Bárbara Lemus are required, authorized, and reviewed every 30 days.
== END 2025-02-26 23:59 | disposition home or self-care (01) ==
LOC: PT 16:00
PROVIDERS: Visit Provider Family Medicine
DX: I89.0 Lymphedema, not elsewhere classified (principal)
CPT/HCPCS: 97140; 97163

== ENCOUNTER 2025-02-26 16:00 | Outpatient (RCR) | payer MEDICARE, SELFPAY ==
--- NOTE | 2025-02-03 16:38 | HMH.RHREAS ---
Rehab Reassessment Rehab OP Re-assessment Start: 02/03/25 16:30 Freq: Status: Active Protocol: Document 02/03/25 16:30 CLOTILDENYDIA (Rec: 02/03/25 16:38 PHODERICK [id number]) E-signed By Edin Booth, PT Rehab Re-assessment Subjective Subjective Pt reports no pain in her R LE at this time and feels much better overall with her edema. She reports she continues to have difficulty with all ADLs requiring her to lift the R LE due to heaviness of the limb. Objective Objective Notes Circumferential Measurements: R LE total is 275.9 cm which is -29.2 cm since initial eval. Pain: 0/10 R LE Edema: 1+ pitting edema at this time R LE. MODERATE fibrotic edema throughout R LE. Assessment Progress Assessment Progressing as Expected Assessment Notes Pt has shown significant improvement overall with R LE based on circumferential measurements. Skilled rehab remains indicated to aid further reduction of overall edema in order to return pt to independence with all ADLs. Patient goals met ST LT/4 Plan Plan Continue per initial POC. Frequency of Therapy 2 x/wk Duration of therapy 4 wks Time and Billing Re-Eval Time 11 Re-Eval Billing 0 Units Charge for PT No reassessment? PHYSICIAN CERTIFICATION: I certify the specified therapy services for Bárbara Lemus are required, authorized, and reviewed every 30 days.
== END 2025-03-02 23:59 | disposition home or self-care (01) ==
LOC: PT 16:00
PROVIDERS: PCP Physician Assistant; Visit Provider Family Medicine
DX: I89.0 Lymphedema, not elsewhere classified (principal)
CPT/HCPCS: 97140

== ENCOUNTER 2025-03-04 15:48 | Outpatient (RCR) | payer MEDICARE, SELFPAY | END 2025-03-04 23:59 | disposition home or self-care (01) | LOC: PT 15:48 | PROVIDERS: Visit Provider Family Medicine | DX: R69 Illness, unspecified (principal) ==

== ENCOUNTER 2025-03-27 16:00 | Outpatient (RCR) | payer MEDICARE, SELFPAY ==
--- NOTE | 2025-03-24 16:25 | HMH.RHREAS ---
Rehab Reassessment Rehab OP Re-assessment Start: 03/05/25 10:16 Freq: Status: Active Protocol: Document 03/24/25 16:14 CLOTILDENYDIA (Rec: 03/24/25 16:25 PHODERICK [id number]) E-signed By Edin Booth, PT Rehab Re-assessment Subjective Subjective Pt reports she has no pain at this time and and discomfort in the R LE. She reports she feels her swelling is improving and she continues to use her home lymphedema pump regularly. Objective Objective Notes Circumferential Measurements: R LE total is 286.6 cm which is -18.5 cm since initial eval. L LE total is 259.9 cm which is - 34.1 cm since initial eval. Pain: 0/10 R LE Edema: 1+ pitting edema from knee distally on R lower leg. MODERATE fibrotic edema throughout R lower leg from knee distal. Upper R leg is much more soft and no longer exhibits fibrotic edema. Assessment Progress Assessment Progressing as Expected Assessment Notes Pt has shown significant improvement overall with B LE based on circumferential measurements. Skilled rehab remains indicated to aid further reduction of overall edema in order to return pt to independence with all ADLs. Patient goals met ST/ LT/4 Plan Plan Continue per initial POC. Frequency of Therapy 2 x/wk Duration of therapy 4 wks Time and Billing Re-Eval Time 11 Re-Eval Billing 0 Units Charge for PT No reassessment? PHYSICIAN CERTIFICATION: I certify the specified therapy services for Bárbara Lemus are required, authorized, and reviewed every 30 days.
== END 2025-03-27 23:59 | disposition home or self-care (01) ==
LOC: PT 16:00
PROVIDERS: PCP Physician Assistant; Visit Provider Family Medicine
DX: I89.0 Lymphedema, not elsewhere classified (principal)
CPT/HCPCS: 97140

== ENCOUNTER 2025-04-21 15:00 | Outpatient (RCR) | payer MEDICARE, SELFPAY | END 2025-04-21 23:59 | disposition home or self-care (01) | LOC: PT 15:00 | PROVIDERS: PCP Physician Assistant; Visit Provider Family Medicine | DX: I89.0 Lymphedema, not elsewhere classified (principal) | CPT/HCPCS: 97140 ==